=== PATIENT | female | born 1955 | race Two or more races ===

== ENCOUNTER 2020-11-22 06:41 | Outpatient (CLI) | payer BC, OTHER | END 2020-11-22 23:59 | disposition home or self-care (01) | LOC: LAB 06:41 | PROVIDERS: ATTEND Internal Medicine Gastroenterology | DX: Z01.812 Encounter for preprocedural laboratory examination (principal); Z20.822 Contact with and (suspected) exposure to COVID-19 ==

== ENCOUNTER 2020-11-25 12:29 | Day surgery (SDC) | payer BC, OTHER ==
[2020-11-25] MEDS ORDERED: LIDOCAINE-MPF 2% 5 ML VIAL MC ONE (12:30)
[2020-11-25] MEDS ORDERED: PROPOFOL 200 MG/20 ML BOTTLE IV ONE (12:30)
[2020-11-25 12:59] LABS: *BILIRUBIN,URIN NEGATIVE (NEGATIVE); *CLARITY,URINE CLEAR (CLEAR); *COLOR,URINE YELLOW (YELLOW); *KETONES,URINE NEGATIVE (NEGATIVE); *UROBILINOGEN,URINE 0.2 E.U./dl (NORMAL); LEUKOCYTE ESTERASE ,URINE NEGATIVE (NEGATIVE); NITRITE, URINE NEGATIVE (NEGATIVE); UGLUCOSE NEGATIVE (NEGATIVE)
[2020-11-25 13:01] LABS: *BLOOD, URINE NEGATIVE (NEGATIVE)
[2020-11-25 13:43] LABS: CREATININE 0.9 mg/dL (0.6-1.3); POTASSIUM 4.1 mmol/L (3.5-5.1)
[2020-11-25 13:47] LABS: HEMATOCRIT 43.9 % (31.2-41.9); MEAN CORPUSCULAR VOLUME 88.8 fL (75.5-95.3)
[2020-11-25 13:48] LABS: PLATELET COUNT (AUTO) 306 K/uL (179-408)
[2020-11-25 13:49] LABS: BILIRUBIN,TOTAL 0.7 mg/dL (0.2-1.0); TOTAL PROTEIN, SERUM 7.1 g/dL (6.4-8.2)
== END 2020-11-25 16:45 | disposition home or self-care (01) ==
LOC: DS 12:29
PROVIDERS: ATTEND Internal Medicine Gastroenterology
DX: Z12.11 Encounter for screening for malignant neoplasm of colon (principal); K64.0 First degree hemorrhoids; R10.13 Epigastric pain; K31.89 Other diseases of stomach and duodenum; K63.89 Other specified diseases of intestine; K21.00 Gastro-esophageal reflux disease with esophagitis, without bleeding; K29.50 Unspecified chronic gastritis without bleeding; Z86.73 Personal history of transient ischemic attack (TIA), and cerebral infarction without residual deficits; Z79.899 Other long term (current) drug therapy; Z98.890 Other specified postprocedural states
CPT/HCPCS: 36415; 71045; 85025; 85610; 85730; 88313-TC; 88342; A4217; A4663; J3490; J7120

== ENCOUNTER 2025-04-13 06:33 | Day surgery (SDC) | payer BC, OTHER ==
[2025-04-13] MEDS ORDERED: PROPOFOL 200 MG/20 ML BOTTLE ONE (08:29)
[2025-04-13 09:30] VITALS: BP 122/78; TEMP 97.4
== END 2025-04-13 09:50 | disposition home or self-care (01) ==
LOC: DS 06:33
PROVIDERS: ATTEND Internal Medicine Gastroenterology
DX: Z12.11 Encounter for screening for malignant neoplasm of colon (principal); R10.13 Epigastric pain; F32.A Depression, unspecified; K29.70 Gastritis, unspecified, without bleeding; K64.8 Other hemorrhoids; I48.20 Chronic atrial fibrillation, unspecified; Z86.0100 Personal history of colon polyps, unspecified; Z87.01 Personal history of pneumonia (recurrent); Z87.19 Personal history of other diseases of the digestive system; Z88.0 Allergy status to penicillin; Z88.2 Allergy status to sulfonamides; Z79.899 Other long term (current) drug therapy; Z98.890 Other specified postprocedural states; Z86.73 Personal history of transient ischemic attack (TIA), and cerebral infarction without residual deficits
CPT/HCPCS: 43239; 45378; 88305; 88313; 88342; J7120; A4663; J3490